=== PATIENT | female | born 1995 | race Caucasian/White ===

== ENCOUNTER 2018-02-05 11:09 | Inpatient (IN) | payer BC, OTHER ==
[~2018-02-05] VITALS: Ht 165.1 cm; Wt 49.9 kg
[2018-02-05] MEDS ORDERED: LORAZEPAM 1 MG TABLET PO PRN ×2 (22:00)
[2018-02-05] MEDS ORDERED: ONDANSETRON ODT 4 MG TAB.RAPDIS SL PRN (22:00)
[2018-02-05] MEDS ORDERED: MAG HYDROX/AL HYDROX/SIMETH 30 ML LIQUID UDC PO PRN (22:00)
[2018-02-05] MEDS ORDERED: DICYCLOMINE HCL 20 MG TABLET PO PRN (22:00)
[2018-02-05] MEDS ORDERED: LORAZEPAM 2 MG/1 ML VIAL IM PRN (22:00)
[2018-02-05] MEDS ORDERED: LOPERAMIDE HCL 2 MG CAPSULE PO PRN ×2 (22:00)
[2018-02-05] MEDS ORDERED: ACETAMINOPHEN 325 MG TABLET PO PRN (22:00)
[2018-02-05] MEDS ORDERED: MIRALAX 17 GM POWD.PACK PO PRN (22:00)
[2018-02-05] MEDS ORDERED: ONDANSETRON 4 MG/2 ML VIAL IM PRN (22:00)
[2018-02-05] MEDS ORDERED: MAGNESIUM HYDROXIDE 30 ML LIQUID UDC PO PRN (22:00)
--- NOTE | 2018-02-05 22:00 | NUR ---
Pre admission note Pt seen in intake office. Pt is in stable condition with V/S WNL. Policies on medication disposal explained to and understood by patient. Will admit to unit. Respirations even and unlabored. Will continue to monitor.
[2018-02-05 22:08] LABS: *URINE HCG, QUAL NEGATIVE (NEGATIVE)
--- NOTE | 2018-02-05 22:30 | NUR ---
Admission note Pt is a 22 yo female, A+Ox4, presenting to [facility] for ETOH withdrawal. Pt has NKA, is on Full code status, and on Regular diet. Pt is 5'5" in height and 110 LBS in weight. Pt has Medical HX of Insomnia, Anxiety, Depression, and childhood asthma. Pt has no primary care provider. Pt has family HX of alcohol/substance abuse from brother (25). Pt has been drinking alcohol for 9 years, has reached a level of 2 bottles of white wine/daily, and last drink was 2 bottles of white wine on 02/04/18. Pt has been taking home medications as follows: Wellbutrin 400mg QD, Lexapro 10mg QHS, and Trazodone 50mg QHSPRN. [facility] by . Pt has HX of previous Detox/Rehab @ [facility] in [place], [place] for 30 days in 10/2016 and continued sobriety for 1 year and 3 months until about 3 weeks ago. Pt is a former cigarette smoker and states "I used to smoke before but only like 1 cigarette per day until about 3 months ago when i quit.". Pt states " I need to get sober again and get back on track with my life.". Pt states "I knew that i needed to come in to treatment or else i was going to spiral out of control.". Pt is in stable condition with V/S WNL. Respirations even and unlabored. Will continue to monitor. Addendum: 02/06/18 at 0237 by SARI MORATAYA LVN Pt has been drinking alcohol for 9 years (3 weeks currently)
[2018-02-05 23:37] LABS: BASOPHILS % (AUTO) 0.6 % (0.0-2.0); EOSINOPHILS # (AUTO) 0.1 K/uL (0.0-0.7); EOSINOPHILS % (AUTO) 1.1 % (0.0-7.0); HEMATOCRIT 38.9 % (31.2-41.9); HEMOGLOBIN 12.8 g/dL (10.9-14.3); LYMPHOCYTES # (AUTO) 2.5 K/uL (20.0-40.0); LYMPHOCYTES % (AUTO) 46.4 % (20.5-51.5); MEAN CORPUSCULAR HEMOGLOBIN 28.2 uug (24.7-32.8); MEAN CORPUSCULAR HGB CONC 33 g/dL (32.3-35.6); MEAN CORPUSCULAR VOLUME 85.7 fL (75.5-95.3); MONOCYTES # (AUTO) 0.7 K/uL (2.0-10.0); MONOCYTES % (AUTO) 12.6 % (0.0-11.0); NEUTROPHILS # (AUTO) 2.2 K/uL (1.8-8.9); NEUTROPHILS % (AUTO) 39.3 % (38.5-71.5); PLATELET COUNT (AUTO) 142 K/uL (179-408); RED BLOOD CELL COUNT(AUTO) 4.54 MIL/uL (3.63-4.92); WHITE BLOOD COUNT (AUTO) 5.5 K/uL (3.8-11.8)
[2018-02-05] MEDS ORDERED: LORAZEPAM 1 MG TABLET PO SCH (23:45)
[2018-02-06] VITALS (7 sets, daily range): BP systolic 115–141; BP diastolic 74–92
[2018-02-06] MEDS ORDERED: THIAMINE HCL 200 MG/2 ML VIAL IM ONE
[2018-02-06] MEDS ORDERED: BUPR300T52 PO (00:01)
[2018-02-06] MEDS ORDERED: ESCI10TA PO (00:01)
[2018-02-06] MEDS ORDERED: TRAZ-144 PO (00:01)
[2018-02-06 00:25] LABS: ALANINE AMINOTRANSFERASE 36 U/L (14-59); ALKALINE PHOSPHATASE 56 U/L (50-136); AMYLASE 34 U/L (25-115); ASPARTATE AMINOTRANSFERASE 30 U/L (15-37); BILIRUBIN,TOTAL 0.6 mg/dL (0.2-1.0); CARBON DIOXIDE 26 mmol/L (21-32); CHLORIDE 101 mmol/L (98-107); CREATININE 0.7 mg/dL (0.6-1.3); GLUCOSE 85 mg/dL (74-106); MAGNESIUM 1.8 mg/dL (1.8-2.4); POTASSIUM 3.5 mmol/L (3.5-5.1); TOTAL PROTEIN, SERUM 7.7 g/dL (6.4-8.2); UREA NITROGEN, BLOOD 10 mg/dL (7-18)
[2018-02-06 00:28] LABS: THYROID STIMULATING HORMONE 3.314 mIU/mL (0.358-3.740)
[2018-02-06 01:27] LABS: *BARBITURATE, URINE NEGATIVE (NEGATIVE)
[2018-02-06 01:29] LABS: *AMPHETAMINE, URINE NEGATIVE (NEGATIVE); *CANNABINOID, URINE NEGATIVE (NEGATIVE); *COCCAINE, URINE NEGATIVE (NEGATIVE); *OPIATE, URINE NEGATIVE (NEGATIVE); *PHENCYCLIDINE SCREEN,URINE NEGATIVE (NEGATIVE)
[2018-02-06 01:47] LABS: ETHANOL < 3 MG/DL (0-0)
[2018-02-06] MEDS ORDERED: CLIN50GE7 TP (02:05)
--- NOTE | 2018-02-06 06:22 | NUR ---
PRN Ativan 1mg Pt c/o anxiety and noted with CIWA: 9. PRN Ativan 1 mg given and tolerated well. Will reassess within 1 HR. Will continue to monitor.
--- NOTE | 2018-02-06 06:59 | NUR ---
PRN Ativan 1mg Reassessment Medication effective. Pt expresses reduction in anxiety with CIWA: 7. No s/s of ASE noted at this time. Respirations even and unlabored. Will continue to monitor.
--- NOTE | 2018-02-06 07:01 | NUR ---
End of shift note Newly admitted patient. Pt was continuously noted to be anxious, agitated, and restless. Pt remained in room for entire remainder of shift after admission except to get food from kitchen. Pt was given PRN Ativan 1mg @0622. Pt slept for a total of 6 HRS. Last CIWA: 7 @0659. Respirations even and unlabored. Will endorse to day shift nurse.
--- NOTE | 2018-02-06 07:32 | NUR ---
BEGINNING OF SHIFT Patient endorsement report received from power and recovery shift engineer nurse, all pertinent information discussed. Patient is a 22 year old female with admitting Dx: ETOH withdrawal, Patient continues under very close observation, patient currently with ongoing taper, of: 4 day Ativan, patient is scheduled to begin day 1 of taper. Per power and recovery shift engineer patient with last cow score of: 14, and ciwa score of: 7. Received PRN: Ativan 1 mg as ordered for s/sx of withdrawal. during power and recovery shift engineer. slept for 6 hours. Fall and seizure precautions observed at all times. Patient received awake, alert and oriented x4, educated regarding plan of care for the day, and medication regimen with good verbal understanding. fall and seizure precautions observed and in place. will continue to monitor closely. safety measures in place.
[2018-02-06] MEDS: FOLIC ACID 1 MG TABLET PO SCH (08:54)
[2018-02-06] MEDS: LORAZEPAM 1 MG TABLET PO SCH ×3 (08:54→22:25)
[2018-02-06] MEDS: THIAMINE HCL 100 MG TABLET PO SCH (08:54)
[2018-02-06] MEDS: MULTIVITAMINS,THERAPEUTIC TABLET PO SCH (08:54)
[2018-02-06] MEDS ORDERED: TUBERCULIN,PURIF.PROT.DERIV. 5 TU/0.1 ML TEST ID ONE (09:00)
--- NOTE | 2018-02-06 09:10 | NUR ---
INCIDENT Patient reported to staff that as she was about to sit on the toilet in her room, she accidently hit her head on the sink as she was about to go into a sitting position. patient reports feeling fine. staff nurse assessed patient. bp: 130/85 hr: 75 t: 98.2 r: 20 o2 sat: 98% room air. patients pupils are equal and reactive to light, 3mm. patient denies any headache of dizziness. patient skin is intact. noted with red, purplish discoloration approximately [id number] in size. patient reports "i feel fine, i just bumped my head, i am ok" patient was educated regarding safety precautions with good verbal understanding. MD notified. Will continue to monitor closely. safety measures in place. call light with in reach. will continue to monitor. Addendum: 02/06/18 at 1252 by DERIK TOM LVN applied an ice pack to forehead area, to prevent swelling. teaching regarding ice therapy was provided with good verbal understanding.
[2018-02-06] MEDS: CLONIDINE HCL 0.1 MG TABLET PO PRN (16:46)
--- NOTE | 2018-02-06 16:46 | NUR ---
PRN CLONIDINE Patient with BP: 141/92 HR: 92. Administered Clonidine 0.1mg Po as ordered for elevated blood pressure. will monitor effectiveness of medication.
--- NOTE | 2018-02-06 17:46 | NUR ---
CLONIDINE REASSESSMENT Medication effective, decrease in bp. BP: 133/68 HR: 72. Will continue to monitor.
--- NOTE | 2018-02-06 19:01 | NUR ---
END OF SHIFT Patient alert and oriented x4, monitored closely during shift. Patient has a worried, and anxious facial expression. Patient is disheveled, noted with flat affect, and anxious mood, at times patient tearful. Patient with admitting Dx: ETOH withdrawal, continues on a 4 day Ativan taper as ordered. During shift patient presented with: Sweats, anxiety, tremors, agitation, mild sensitivity to light and noise. Initial ciwa score of: 17, Md was notified. Last ciwa score of: 13. detox medication effective at reducing withdrawal symptoms. Patient was encouraged adequate PO fluid intake as tolerated. Was administered PRN: Clonidine as ordered for elevated blood pressure, medication was effective. Patient encouraged to participate in therapy sessions, patient denies any SI/HI. Patient was encouraged to verbalize feelings, encouraged to develop coping skills and utilization of non pharmacological interventions. patients safety measures are in place. call light kept with in reach, will continue to monitor. Endorsed to chief information security officer nurse, all pertinent information discussed.
--- NOTE | 2018-02-06 19:14 | NUR ---
Start of shift note Received report from day shift nurse. Pt is a 22 yo female, A+Ox4, presenting to [facility] for ETOH withdrawal. Pt noted with anxiety, agitation, restlessness, and flat affect. Pt has HX of Anxiety, Depression, and Insomnia which will be monitored during shift. Pt is on 4 day Ativan taper, tolerated well. Respirations even and unlabored. Will continue to monitor.
[2018-02-07 00:15] VITALS: BP 128/85
[2018-02-07 04:20] VITALS: BP 131/89
--- NOTE | 2018-02-07 04:28 | NUR ---
PRN Ativan 2mg Pt c/o anxiety and noted with CIWA: 13. PRN Ativan 2mg given and tolerated well. Will reassess within 1 HR. Will continue to monitor.
--- NOTE | 2018-02-07 05:20 | NUR ---
PRN Ativan 2mg Reassessment Medication effective. Pt expresses reduction in anxiety with CIWA:10. No s/s of ASE noted at this time. Respirations even and unlabored. Will continue to monitor.
--- NOTE | 2018-02-07 07:36 | NUR ---
BEGINNING OF SHIFT Patient endorsement report received from sheep or calf grader nurse, all pertinent information discussed. Patient is a 22 year old female with admitting Dx: ETOH withdrawal, Patient continues under very close observation, patient currently with ongoing taper, of: 4 day Ativan, patient is scheduled to begin day 2 of taper. Per sheep or calf grader patient with last ciwa score of:10. Received PRN: Ativan 2 mg as ordered for s/sx of withdrawal. during sheep or calf grader. slept for 10 hours. Fall and seizure precautions observed at all times. Patient received awake, alert and oriented x4, educated regarding plan of care for the day, and medication regimen with good verbal understanding. fall and seizure precautions observed and in place. will continue to monitor closely. safety measures in place.
[2018-02-07 08:41] VITALS: BP 124/92
[2018-02-07] MEDS: THIAMINE HCL 100 MG TABLET PO SCH (08:56)
[2018-02-07] MEDS: FOLIC ACID 1 MG TABLET PO SCH (08:56)
[2018-02-07] MEDS: ESCITALOPRAM OXALATE 10 MG TABLET PO SCH (08:56)
[2018-02-07] MEDS: MULTIVITAMINS,THERAPEUTIC TABLET PO SCH (08:56)
[2018-02-07] MEDS ORDERED: LORAZEPAM 1 MG TABLET PO SCH ×2 (09:00→21:00)
[2018-02-07 11:11] LABS: HEPATITIS B SURFACE AG Negative (Negative)
[2018-02-07] MEDS ORDERED: LORAZEPAM 1 MG TABLET PO PRN ×2 (11:15)
[2018-02-07 12:08] VITALS: BP 128/94
[2018-02-07] MEDS: IBUPROFEN 400 MG TABLET PO PRN (12:08)
[2018-02-07] MEDS: LORAZEPAM 1 MG TABLET PO SCH ×2 (12:08→16:35)
--- NOTE | 2018-02-07 12:08 | NUR ---
PRN MOTRIN Patient c/o menstrual cramps pain 05/20, administered Motrin as ordered, and patient was given heat pack as per request. will monitor closely.
--- NOTE | 2018-02-07 13:08 | NUR ---
MOTRIN REASSESSMENT Patient reports medication effective, current pain level 0/10, will continue to monitor.
[2018-02-07 16:35] VITALS: BP 127/86
[2018-02-07] MEDS ORDERED: CLON0.1T14 PO (17:00)
[2018-02-07] MEDS ORDERED: IBUP-1953 PO (17:00)
[2018-02-07] MEDS ORDERED: HYDR-3895 PO (17:00)
[2018-02-07] MEDS ORDERED: TRAZ-144 PO (17:00)
--- NOTE | 2018-02-07 19:05 | NUR ---
END OF SHIFT Patient alert and oriented x4, monitored closely during shift. Patient has a worried, and anxious facial expression. Patient is disheveled, noted with flat affect, and anxious mood, at times patient tearful. Patient with admitting Dx: ETOH withdrawal, continues on a 4 day Ativan taper as ordered, taper was extended as per Dr. Pierre. During shift patient presented with: Sweats, anxiety, tremors, agitation. Initial ciwa score of: 12, Md was notified. Last ciwa score of: 10. detox medication effective at reducing withdrawal symptoms. Patient was encouraged adequate PO fluid intake as tolerated. Was administered PRN: Motrin as ordered. Patient encouraged to participate in therapy sessions, patient denies any SI/HI. Patient was encouraged to verbalize feelings, encouraged to develop coping skills and utilization of non pharmacological interventions. patients safety measures are in place. call light kept with in reach, will continue to monitor. Endorsed to mini shifter nurse, all pertinent information discussed.
--- NOTE | 2018-02-07 19:15 | NUR ---
Start of shift note Received report from day shift nurse. Pt is a 22 yo female, A+Ox4, presenting to [facility] for ETOH withdrawal. Pt noted to be agitated, anxious, restless, and having chills and sweats. Pt has HX of Insomnia, Anxiety, and Depression which will be monitored during shift. Pt is on 4 day Ativan taper, tolerated well. Respirations even and unlabored. Will continue to monitor.
[2018-02-07 20:10] VITALS: BP 121/90
[2018-02-07] MEDS: HYDROXYZINE PAMOATE 25 MG CAPSULE PO PRN (22:53)
[2018-02-07] MEDS: TRAZODONE 50 MG TABLET PO PRN (22:53)
--- NOTE | 2018-02-07 22:53 | NUR ---
PRN Vistaril and Trazodone Pt c/o anxiety and inability to sleep and requested for PRN Vistaril and Trazodone. Medications given and tolerated well. Will reassess within 1 HR. Will continue to monitor.
--- NOTE | 2018-02-07 23:50 | NUR ---
PRN Vistaril and Trazodone Reassessment Medications effective. Pt is resting well in bed. No s/s of ASE noted at this time. Respirations even and unlabored. Will continue to monitor.
[2018-02-08] VITALS (8 sets, daily range): BP systolic 102–140; BP diastolic 57–91
--- NOTE | 2018-02-08 07:00 | NUR ---
End of shift note Pt was continuously noted with anxiety, depression, agitation, restlessness, chills, and sweats. Pt remained in room for majority of shift except to get food from kitchen. Pt is on 4 day Ativan taper, tolerated well. Pt was given PRN Vistaril and PRN Trazodone @2253. Pt slept for a total of 10 HRS. Last CIWA: 10 @0400. Respirations even and unlabored. Will endorse to day shift nurse.
--- NOTE | 2018-02-08 07:43 | NUR ---
BEGINNING OF SHIFT Patient endorsement report received from shift leader nurse, all pertinent information discussed. Patient is a 22 year old female with admitting Dx: ETOH withdrawal, Patient continues under very close observation, patient currently with ongoing taper, of: 4 day Ativan, patient is scheduled to begin day 3 of taper. Per shift leader patient with last ciwa score of:10. Received PRN: Vistaril and Trazodone as ordered for s/sx of withdrawal. during shift leader. slept for 10 hours. Fall and seizure precautions observed at all times. Patient received awake, alert and oriented x4, educated regarding plan of care for the day, and medication regimen with good verbal understanding. fall and seizure precautions observed and in place. will continue to monitor closely. safety measures in place.
[2018-02-08] MEDS ORDERED: LORAZEPAM 1 MG TABLET PO SCH (09:00)
[2018-02-08] MEDS: THIAMINE HCL 100 MG TABLET PO SCH (09:08)
[2018-02-08] MEDS: FOLIC ACID 1 MG TABLET PO SCH (09:08)
[2018-02-08] MEDS: MULTIVITAMINS,THERAPEUTIC TABLET PO SCH (09:08)
[2018-02-08] MEDS: ESCITALOPRAM OXALATE 10 MG TABLET PO SCH (09:08)
[2018-02-08] MEDS: CLONIDINE HCL 0.1 MG TABLET PO PRN (14:17)
[2018-02-08] MEDS: LORAZEPAM 1 MG TABLET PO SCH ×2 (14:17→20:04)
--- NOTE | 2018-02-08 14:17 | NUR ---
PRN CLONIDINE Patient with BP: 140/91. Administered Clonidine 0.1mg Po as ordered for elevated blood pressure. will monitor effectiveness of medication.
--- NOTE | 2018-02-08 15:17 | NUR ---
CLONIDINE REASSESSMENT medication effective, decrease in blood pressure: 102/57 hr: 67. will continue to monitor closely.
--- NOTE | 2018-02-08 19:02 | NUR ---
END OF SHIFT Patient alert and oriented x4, monitored closely during shift. Patient has a worried, and anxious facial expression. Patient is disheveled, noted with flat affect, and anxious mood, at times patient tearful. Patient with admitting Dx: ETOH withdrawal, continues on a modified Ativan taper as ordered, taper was extended as per Dr. Pierre. During shift patient presented with: Sweats, anxiety, fine tremors, agitation. Initial ciwa score of: 9, Md was notified. Last ciwa score of: 9. detox medication effective at reducing withdrawal symptoms. Patient was encouraged adequate PO fluid intake as tolerated. Was administered PRN: clonidine as ordered. Patient encouraged to participate in therapy sessions, patient denies any SI/HI. Patient was encouraged to verbalize feelings, encouraged to develop coping skills and utilization of non pharmacological interventions. patients safety measures are in place. call light kept with in reach, will continue to monitor. Endorsed to maintenance technician 3rd shift nurse, all pertinent information discussed.
--- NOTE | 2018-02-08 19:30 | NUR ---
START OF SHIFT Received 22 year old female patient admitted on 02/05/18 for ETOH withdrawal. Pt is alert and oriented x4. She continues on a 4 day Ativan taper and is tolerating well. Pt is noted to be anxious, withdrawn, emotional, restless, and guarded. Per endorsement, she received PRN Clonidine. Last CIWA:9 at 1600. Breathing is even and unlabored, safety measures in place. Will monitor.
[2018-02-08] MEDS: TRAZODONE 50 MG TABLET PO PRN (20:04)
--- NOTE | 2018-02-08 20:04 | NUR ---
PRN TRAZODONE Pt complains of difficulty sleeping. PRN Trazodone administered as ordered. Breathing is even and unlabored, safety measures in place. Will continue to monitor.
--- NOTE | 2018-02-08 21:04 | NUR ---
PRN TRAZODONE REASSESSMENT PRN medication effective. Pt is lying in bed with eyes closed noted to be asleep. Breathing is even and unlabored, safety measures in place. Will monitor.
[2018-02-09 04:00] VITALS: BP 102/58
[2018-02-09] MEDS: IBUPROFEN 400 MG TABLET PO PRN (05:15)
[2018-02-09] MEDS: HYDROXYZINE PAMOATE 25 MG CAPSULE PO PRN ×2 (05:15→15:21)
--- NOTE | 2018-02-09 05:15 | NUR ---
PRN MOTRIN/VISTARIL Pt complains of headache 6/10 and anxiety. PRN Motrin and Vistaril administered as ordered. Breathing even and unlabored, safety measures in place. Will monitor.
--- NOTE | 2018-02-09 06:15 | NUR ---
PRN REASSESSMENT PRN medications effective. Pt is lying in bed with eyes closed noted to be asleep. Breathing is even and unlabored, safety measures in place. Will continue to monitor.
--- NOTE | 2018-02-09 07:08 | NUR ---
END OF SHIFT Pt is a 22 year old female patient admitted on 02/05/18 for ETOH withdrawal. Pt remains alert and oriented x4. She continues on a 4 day Ativan taper, currently on day 02/12 and is tolerating well. Pt was noted to be anxious, withdrawn, emotional, restless, and guarded during the shift. She received PRN Trazodone, Motrin and Vistaril. She slept a total of 8 hrs, Intake: 800mL, Void: x4, BM:0. Last CIWA: 7 at 2000. Breathing is even and unlabored, safety measures in place. Will endorse to AM shift.
--- NOTE | 2018-02-09 07:40 | NUR ---
START OF SHIFT Ongoing nurse endorse client. Client is in room, a/o x 4, client presents with anxious mood, flat affect, irritable, and clammy skin.. Client reports fatigue, restless legs, decreased appetite, and headache. PRN Motrin, Vistaril, and Trazodone administered per protocol, see emar. Client slept 5 hrs. Encourage client to attend group therapy to learn skills to maintain sober. Encourage client to increase PO fluid intake to facilitate detox. Client is on last of 5 day Ativan taper, last CIWA 7 @ 1999. Call light within reach.
[2018-02-09 08:04] VITALS: BP 109/64
[2018-02-09] MEDS ORDERED: LORAZEPAM 1 MG TABLET PO SCH (09:00)
[2018-02-09] MEDS: FOLIC ACID 1 MG TABLET PO SCH (09:14)
[2018-02-09] MEDS: THIAMINE HCL 100 MG TABLET PO SCH (09:14)
[2018-02-09] MEDS: ESCITALOPRAM OXALATE 10 MG TABLET PO SCH (09:14)
[2018-02-09] MEDS: MULTIVITAMINS,THERAPEUTIC TABLET PO SCH (09:14)
[2018-02-09] MEDS ORDERED: HYDROXYZINE PAMOATE 25 MG CAPSULE PO PRN (11:00)
[2018-02-09] MEDS: CLONIDINE HCL 0.1 MG TABLET PO PRN (11:15)
--- NOTE | 2018-02-09 11:15 | NUR ---
PRN Clonidine 0.1mg PO administered for anxiety, irritability and chills. Call light within reach.
[2018-02-09 12:00] VITALS: BP 122/78
--- NOTE | 2018-02-09 12:15 | NUR ---
Reassess PRN Clonidine 0.1mg, client is in bed, sound asleep, easy to arouse, RR 16, even, non-labored. Call light within reach.
--- NOTE | 2018-02-09 15:21 | NUR ---
PRN Vistaril 25mg PO administered for anxiety. Call light within reach.
--- NOTE | 2018-02-09 16:21 | NUR ---
CRISSY Bossristephane 25mg, client reports feeling less anxious. Addendum: 02/09/18 at 1757 by ANITRA BELLO RN Reassess
[2018-02-09 16:55] VITALS: BP 120/82
--- NOTE | 2018-02-09 19:02 | NUR ---
END OF SHIFT Endorse client to incoming nurse, client is in room, a/o x 4, client continues to present with anxious mood, flat affect, irritable, and clammy skin. Client completed 5 day Ativan taper, last CIWA 6 @ 1600. Client is schedule for discharge tomorrow to [facility]. PRN's administered and noted per protocol, see eMAR. Client is compliant with 1/3 of group therapy. Adequate PO fluid intake 2300mL, void x 5. Consumes 50% of meals. Last CIWA 6 @ 1600. Call light within reach.
--- NOTE | 2018-02-09 19:30 | NUR ---
START OF SHIFT Patient received sleeping in bed. Breathing is even and non labored, no s/s of distress noted.Per report,Pt has completed 5 day Ativan taper and is scheduled for discharge tomorrow to [facility]. Last CIWA 6 @ 1600. All safety measures in place, Call light within reach,will continue to monitor
[2018-02-09 20:00] VITALS: BP 120/82
[2018-02-09] MEDS: TRAZODONE 50 MG TABLET PO PRN (23:47)
--- NOTE | 2018-02-09 23:48 | NUR ---
PRN TRAZODONE GIVEN ORDERED FOR C/O INSOMNIA.WILL MONITOR.
[2018-02-10] VITALS: BP 118/80
--- NOTE | 2018-02-10 00:50 | NUR ---
PRN F/U PT IS RESTING IN BED WITH EYES CLOSED,BREATHING IS EVEN AND NON LABORED,ALL SAFETY MEASURES IN PLACE WITH CALL LIGHT WITHIN REACH.WILL CONTINUE TO MONITOR.
--- NOTE | 2018-02-10 04:00 | NUR ---
V/S REFUSED;CIWA DEFERRED PT IS SOUND ASLEEP,REFUSED V/S;CIWA DEFERRED D/T BEING ASLEEP.BREATHING IS EVEN AND NON LABORED,NO S/S OF DISTRESS NOTED,WILL CONTINUE TO MONITOR.
--- NOTE | 2018-02-10 06:46 | NUR ---
END OF SHIFT Pt stayed in bed most of time. Breathing is even and non labored, no s/s of distress noted, Pt has completed 5 day Ativan taper and is scheduled for discharge today to [facility]. Last CIWA 4. PRN Trazodone was given for insomnia with good effect.Pt slept 10 hrs,fluid intake was 250 mls,voided x 1. All safety measures in place, Call light within reach,will continue to monitor.
--- NOTE | 2018-02-10 07:58 | NUR ---
START OF SHIFT Rcvd endorse form ongoing nurse, client is in room, a/o x 4, client presents with anxious, irritable mood and flat affect. Client reports feeling anxious stating, "I have to go out there, I need to be strong and commit to be sober this time, but it is very hard." Client is schedule for discharge this am, she completed 4 day Ativan taper, last CIWA 4 @ 1999. PRN Trazodone 50mg PO for inability to sleep, client slept 10 hrs. Discuss discharge instructions, client has no inquiries at this time. Call light within reach.
[2018-02-10 08:02] VITALS: BP 128/86
[2018-02-10 08:06] VITALS: BP 128/86
[2018-02-10] MEDS: ESCITALOPRAM OXALATE 10 MG TABLET PO SCH (08:06)
[2018-02-10] MEDS: CLONIDINE HCL 0.1 MG TABLET PO PRN (08:06)
--- NOTE | 2018-02-10 08:06 | NUR ---
PRN Vistaril 25mg PO administered for anxiety. Call light within reach.
[2018-02-10] MEDS: FOLIC ACID 1 MG TABLET PO SCH (08:07)
[2018-02-10] MEDS: THIAMINE HCL 100 MG TABLET PO SCH (08:07)
[2018-02-10] MEDS: MULTIVITAMINS,THERAPEUTIC TABLET PO SCH (08:07)
--- NOTE | 2018-02-10 09:06 | NUR ---
Reassess PRN Vistaril 25mg, client reports feeling less anxious, client was able to sit still and consume 50% of her breakfast.
--- NOTE | 2018-02-10 09:40 | NUR ---
Discharge Note Client discharged in stable condition with all valuable, belongings, medications, and prescription. Client denies SI/HI. To home via private car with friend Annie.
== END 2018-02-10 09:40 | disposition home or self-care (01) | DRG 895 ==
LOC: SRC 20:58
PROVIDERS: ADMIT Internal Medicine; ATTEND Internal Medicine
PROC: HZ2ZZZZ Detoxification Services for Substance Abuse Treatment (ICD-10-PCS; principal; 2018-02-05)
PROC: HZ51ZZZ Individual Psychotherapy for Substance Abuse Treatment, Behavioral (ICD-10-PCS; 2018-02-07)
DX: F10.230 Alcohol dependence with withdrawal, uncomplicated (principal); F33.2 Major depressive disorder, recurrent severe without psychotic features; D69.6 Thrombocytopenia, unspecified; I15.9 Secondary hypertension, unspecified; Z91.5 Personal history of self-harm; Y90.0 Blood alcohol level of less than 20 mg/100 ml; G47.00 Insomnia, unspecified; F41.9 Anxiety disorder, unspecified; F17.210 Nicotine dependence, cigarettes, uncomplicated
CPT/HCPCS: 36415; 80307; 83735; 84443; 84703; 85025; 86580; 86592; 86705; 86803; 87340; 87806; A4663; G0480